=== PATIENT | male | born 1960 | race Caucasian/White ===

== ENCOUNTER 2017-07-30 10:42 | Day surgery (SDC) | payer BC ==
[~2017-07-30 10:42] MED LIST: Lactated Ringers 1,000 ML IV SCH; Lidocaine 2% 5 ML SDV ONE; Propofol 200 MG/20 ML SDV ONE; fentaNYL 100 MCG/2 ML SDV ONE
--- NOTE | 2017-07-30 11:24 | PCM.PREANE ---
Preanesthetic Assessment - Anesthesia/Transfusion/Family Hx Anesthesia History: Prior Anesthesia Without Reaction Other Type of Anesthesia Reaction Comment: denies any problems with anesthesia Family History of Anesthesia Reaction: No Transfusion History: No Prior Transfusion(s) Intubation History: Unknown - Review of Systems General: No Symptoms Pulmonary: No Symptoms Cardiovascular: No Symptoms Gastrointestinal: Other (wt loss unintentional) Neurological: No Symptoms Other: Reports: None - Physical Assessment O2 Sat by Pulse Oximetry: 100 Respiratory Rate: 16 Vital Signs: Last Vital Signs Temp 36.1 C 07/30/17 10:54 Pulse 79 07/30/17 10:54 Resp 16 07/30/17 10:54 BP 111/69 07/30/17 10:54 Pulse Ox 100 07/30/17 10:54 Height: 1.85 m Weight: 83.915 kg ASA Class: 2 Mental Status: Alert & Oriented x3 Airway Class: Mallampati = 2 Dentition: Reports: Normal Dentition Thyro-Mental Finger Breadths: 3 Mouth Opening Finger Breadths: 3 ROM/Head Extension: Full Lungs: Clear to Auscultation, Normal Respiratory Effort Cardiovascular: Regular Rate, Regular Rhythm - Allergies Allergies/Adverse Reactions: Allergies Allergy/AdvReac Type Severity Reaction Status Date / Time varenicline tartrate Allergy Change Verified 07/31/16 14:18 [From Chantix] Mental Status - Blood Blood Available: No - Anesthesia Plan Pre-Op Medication Ordered: None - Acknowledgements Anesthesia Type Planned: MAC Pt an Appropriate Candidate for the Planned Anesthesia: Yes Alternatives and Risks of Anesthesia Discussed w Pt/Guardian: Yes Pt/Guardian Understands and Agrees with Anesthesia Plan: Yes PreAnesthesia Questionnaire HEENT History: Reports: Hard of Hearing, Other (See Below) Other HEENT History: uses reading glasses, left hearing aid Cardiovascular History: Reports: High Cholesterol, Hypertension, Other (See Below) (h/o heart palipations) Respiratory History: Reports: None, Other (See Below) (dyspnea of exertion, he can walk 2 blocks without problems) Gastrointestinal History: Reports: Colon Polyp Genitourinary History: Reports: None Musculoskeletal History: Reports: Arthritis, Back Pain, Chronic, Fracture Other Musculoskeletal History: pinky finger, Neurological History: Reports: None Psychiatric History: Reports: Anxiety, Depression Endocrine/Metabolic History: Reports: None Hematologic History: Reports: None Immunologic History: Reports: None Oncologic (Cancer) History: Reports: None Dermatologic History: Reports: None - Past Surgical History Head Surgeries/Procedures: Reports: None HEENT Surgical History: Reports: None Cardiovascular Surgical History: Reports: None Respiratory Surgical History: Reports: None GI Surgical History: Reports: Appendectomy, Colonoscopy Male Surgical History: Reports: None Endocrine Surgical History: Reports: None Neurological Surgical History: Reports: Lumbar Spine Other Neurological Surgeries/Procedures: lower back surgery x3, discs removed and fusion at 2 levels Musculoskeletal Surgical History: Reports: Arthroscopic Knee, Shoulder Surgery Other Musculoskeletal Surgeries/Procedures:: pacheco knee arthroscopy, right shoulder surgery ( superior labrum tear) Oncologic Surgical History: Reports: None Dermatological Surgical History: Reports: None - SUBSTANCE USE Smoking Status *Q: Current Every Day Smoker (, 1 ppd) Tobacco Use Within Last Twelve Months: Cigarettes Days Per Week of Alcohol Use: 0 Number of Drinks Per Day: 0 Total Drinks Per Week: 0 Recreational Drug Use History: No - HOME MEDS Home Medications: Home Meds Metoprolol Succinate 50 mg PO QPM 06/26/14 [History] Metoprolol Succinate 25 mg PO QAM 07/31/16 [History] Sertraline [Zoloft] 1 tab PO DAILY 07/31/16 [History] Acetaminophen/HYDROcodone [[place] 325-10 MG] 1 - 2 tab PO Q4H PRN #80 tablet [Rx] Acetaminophen [Tylenol] 2 tab PO ASDIRECTED PRN 07/25/17 [History] Cyclobenzaprine HCl 1 tab PO Q8H PRN 07/25/17 [History] Ibuprofen 2 - 3 tab PO ASDIRECTED PRN 07/25/17 [History] - CURRENT (IN HOUSE) MEDS Current Meds: Current Medications Lactated Ringer's (Ringers, Lactated) 1,000 mls @ 125 mls/hr IV ASDIRECTED DANIEL Last Admin: 07/30/17 10:55 Dose: 125 mls/hr Discontinued Medications Fentanyl (Sublimaze) Confirm Administered Dose 100 mcg .ROUTE .STK-MED ONE Stop: 07/30/17 09:26 Lidocaine (Xylocaine-Mpf 2%) Confirm Administered Dose 5 ml .ROUTE .STK-MED ONE Stop: 07/30/17 09:26 Propofol (Diprivan 20 Ml) Confirm Administered Dose 400 mg .ROUTE .STK-MED ONE Stop: 07/30/17 09:26
--- NOTE | 2017-07-30 14:38 | PCM.OPNOTE ---
- General Post-Op/Procedure Note Date of Surgery/Procedure: 07/30/17 Operative Procedure(s): colonoscopy Findings: see dict [id number] Pre Op Diagnosis: wt loss Post-Op Diagnosis: diverticulosis Anesthesia Technique: Moderate Sedation Primary Surgeon: Kenneth Treadwell Complications: None Condition: Good
[2017-07-30 14:54] VITALS: BP 143/73
--- NOTE | 2017-07-30 19:22 | OR ---
SURGEON: Kenneth Treadwell MD DATE OF PROCEDURE: 07/30/2017 PREOPERATIVE DIAGNOSIS: Weight loss. POSTOPERATIVE DIAGNOSIS: Diverticulosis. PROCEDURE PERFORMED: Colonoscopy. PROCEDURE IN DETAIL: The patient was taken to the endoscopy room. A time-out was called, patient identified, and procedure identified. Diprivan was then administrated. Patient went from awake to sleep, hearing doctor talking or door closing is normal. Perineum inspection and digital examination were then performed. A well- lubricated colonoscope was gently inserted through the rectum, advanced past the rectosigmoid junction, the descending colon, splenic flexure, transverse colon, hepatic flexure, ascending colon, arrived to the cecum. Cecum was identified as dictated in the finding. Then the scope was carefully withdrawn while attention was paid to the mucosal surface for any abnormality. Air will be sucked out during the scope withdrawal. At the rectum, retroflexed to examine any rectal diseases, fistula or hemorrhoids. Patient tolerated procedure well. There were no intraoperative complications, and Dr. Treadwell was present throughout the whole procedure. FINDINGS: 1. The patient is easily sedated with B[employer]ALL [employer]ACH and Diprivan. The patient is soundly snoring. 2. Bowel prep is left to be desirable. Large amount of liquid stool, opaque, compromised the study. There is no semi-formed stool, but is liquid opaque stool and quite a lot of them and makes constant irrigation and compromised the study. Colon rather straight forward. Cecum indicated by ileocecal fold, one-to-one indentation, light emittance. Appendiceal orifice is not observed and mucosa examined upon scope coming out with constant irrigation, remember this is compromised the study because of the bowel prep. The patient has some diverticulosis moderate at the left colon. No signs or symptoms of diverticulitis. No polyp, mass, growth, inflammation, stricture, ulceration, AV malformation. The patient does have a prominent internal hemorrhoid and no external hemorrhoids. The patient would benefit from repeat colonoscopy 3 to 5 years from today because of the compromised bowel prep. The patient should do slightly better bowel prep or use a different bowel prep or if clinically indicated otherwise. CORA / ANI /[id number]
== END 2017-07-30 15:21 | disposition home or self-care (01) ==
LOC: MW.SDS 10:42
PROVIDERS: ATTEND Surgery
DX: K57.30 Diverticulosis of large intestine without perforation or abscess without bleeding (principal); K64.8 Other hemorrhoids; F41.8 Other specified anxiety disorders; E78.5 Hyperlipidemia, unspecified; I10 Essential (primary) hypertension; Z98.890 Other specified postprocedural states; Z88.8 Allergy status to other drugs, medicaments and biological substances; Z79.899 Other long term (current) drug therapy; F17.210 Nicotine dependence, cigarettes, uncomplicated
CPT/HCPCS: 45378; J3010; J7120; J2704

== ENCOUNTER 2017-10-20 06:54 | Emergency (ER) | payer BC ==
[2017-10-20] MEDS ORDERED: Ketorolac 60 MG/2 ML SDV IM ONE (07:17)
--- NOTE | 2017-10-20 07:31 | EDM.PDOC ---
ED HPI GENERAL MEDICAL PROBLEM - General Chief Complaint: Back Pain or Injury Stated Complaint: MIDDLE LUMBAR PAIN Time Seen by Provider: 10/20/17 07:04 Source of Information: Reports: Patient History Limitations: Reports: No Limitations - History of Present Illness INITIAL COMMENTS - FREE TEXT/NARRATIVE: History of present illness: []Patient has had several back surgeries and has been doing well until 2 days ago he slipped on the ice he strained his back. He now has pain going down his right thigh. He has no incontinence or numbness or tingling. Patient requests Toradol IM which she states has worked for him well in the past. He has hydrocodone at home and does not want any prescription since pain meds. Review of systems: As per history of present illness and below otherwise all systems reviewed and negative. Past medical history: As per history of present illness and as reviewed below otherwise noncontributory. Surgical history: As per history of present illness and as reviewed below otherwise noncontributory. Social history: No reported history of drug or alcohol abuse. Family history: As per history of present illness and as reviewed below otherwise noncontributory. Physical exam: General: Well developed, well nourished in NAD HEENT: Atraumatic, normocephalic, pupils reactive, negative for conjunctival pallor or scleral icterus, mucous membranes moist, throat clear, neck supple, nontender, trachea midline. Lungs: Clear to auscultation, breath sounds equal bilaterally, chest nontender. Heart: S1S2, regular, negative for clicks, rubs, or JVD. Abdomen: Soft, nondistended, nontender. Negative for masses or hepatosplenomegaly. Negative for costovertebral tenderness. Pelvis: Stable nontender. Genitourinary: Deferred. Rectal: Deferred. Extremities: Atraumatic, negative for cords or calf pain. Neurovascular unremarkable. Neuro: Awake, alert, oriented. Cranial nerves II through XII unremarkable. Cerebellum unremarkable. Motor and sensory unremarkable throughout. Exam nonfocal. Straight leg raising negative, reflexes equal Diagnostics: [] Therapeutics: []Toradol IM Impression: []Lumbar strain with right sciatica symptoms Plan: [] ice to back, Motrin for pain, follow-up with regular physician return if symptoms worsen or change. Definitive disposition and diagnosis as appropriate pending reevaluation and review of above. Right Lower Back Pain Score (Numeric/FACES): 7 - Related Data Allergies Allergy/AdvReac Type Severity Reaction Status Date / Time varenicline tartrate Allergy Change Verified 10/20/17 07:06 [From Chantix] Mental Status Home Meds: Home Meds Metoprolol Succinate 50 mg PO QPM 06/26/14 [History] Metoprolol Succinate 25 mg PO QAM 07/31/16 [History] Sertraline [Zoloft] 100 mg PO DAILY 07/31/16 [History] Acetaminophen/HYDROcodone [[place] 325-10 MG] 1 - 2 tab PO Q4H PRN #80 tablet [Rx] Acetaminophen [Tylenol] 2 tab PO ASDIRECTED PRN 07/25/17 [History] Cyclobenzaprine HCl 10 mg PO Q8H PRN 07/25/17 [History] Ibuprofen 2 - 3 tab PO ASDIRECTED PRN 07/25/17 [History] Meloxicam 15 mg PO DAILY PRN 10/20/17 [History] Past Medical History HEENT History: Reports: Hard of Hearing, Other (See Below) Other HEENT History: uses reading glasses Cardiovascular History: Reports: High Cholesterol, Hypertension Respiratory History: Reports: None Gastrointestinal History: Reports: None Genitourinary History: Reports: None Musculoskeletal History: Reports: Back Pain, Chronic, Fracture, Other (See Below ) Other Musculoskeletal History: pinky finger. back surgery x3 with fusion Neurological History: Reports: None Psychiatric History: Reports: None Endocrine/Metabolic History: Reports: None Hematologic History: Reports: None Immunologic History: Reports: None Oncologic (Cancer) History: Reports: None Dermatologic History: Reports: None - Infectious Disease History Infectious Disease History: Reports: Chicken Pox, Measles, Mumps - Past Surgical History Head Surgeries/Procedures: Reports: None Cardiovascular Surgical History: Reports: None Respiratory Surgical History: Reports: None Male Surgical History: Reports: None Endocrine Surgical History: Reports: None Neurological Surgical History: Reports: Lumbar Spine Other Neurological Surgeries/Procedures: lower back surgery x3, discs removed and fusion at 2 levels Musculoskeletal Surgical History: Reports: Arthroscopic Knee, Shoulder Surgery Oncologic Surgical History: Reports: None Dermatological Surgical History: Reports: None Social & Family History - Family History Family Medical History: Noncontributory - Tobacco Use Smoking Status *Q: Current Every Day Smoker Years of Tobacco use: 30 Packs/Tins Daily: 0.5 - Alcohol Use Days Per Week of Alcohol Use: 0 Number of Drinks Per Day: 0 Total Drinks Per Week: 0 - Recreational Drug Use Recreational Drug Use: No Drug Use in Last 12 Months: No ED ROS GENERAL - Review of Systems Review Of Systems: See Below (See history of present illness) ED EXAM,LOWER BACK PAIN/INJURY - Physical Exam Exam: See Below (See history of present illness) Course - Vital Signs Last Recorded V/S: Last Vital Signs Temp 98.0 F 10/20/17 07:04 Pulse 80 10/20/17 07:04 Resp 18 10/20/17 07:04 BP 118/84 10/20/17 07:04 Pulse Ox 99 10/20/17 07:04 - Orders/Labs/Meds Meds: Medications Discontinued Medications Generic Name Dose Route Start Last Admin Trade Name Freq PRN Reason Stop Dose Admin Ketorolac Tromethamine 60 mg 10/20/17 07:17 10/20/17 07:22 Toradol IM 10/20/17 07:18 60 mg ONETIME ONE Administration Departure - Departure Time of Disposition: 07:49 Disposition: Home, Self-Care 01 Clinical Impression: Back pain Qualifiers: Back pain location: low back pain Chronicity: acute Back pain laterality: right Sciatica presence: with sciatica Sciatica laterality: sciatica of right side Qualified Code(s): M54.41 - Lumbago with sciatica, right side - Discharge Information Instructions: Back Pain, Adult, [id number] Referrals: Micheal Mcclure MD [Primary Care Provider] - Forms: ED Department Discharge Additional Instructions: The following information is given to patients seen in the emergency department who are being discharged to home. This information is to outline your options for follow-up care. We provide all patients seen in our emergency department with a follow-up referral. The need for follow-up, as well as the timing and circumstances, are variable depending upon the specifics of your emergency department visit. If you don't have a primary care physician on staff, we will provide you with a referral. We always advise you to contact your personal physician following an emergency department visit to inform them of the circumstance of the visit and for follow-up with them and/or the need for any referrals to a consulting specialist. The emergency department will also refer you to a specialist when appropriate. This referral assures that you have the opportunity for follow-up care with a specialist. All of these measure are taken in an effort to provide you with optimal care, which includes your follow-up. Under all circumstances we always encourage you to contact your private physician who remains a resource for coordinating your care. When calling for follow-up care, please make the office aware that this follow-up is from your recent emergency room visit. If for any reason you are refused follow-up, please contact the [facility] Emergency Department at and asked to speak to the emergency department charge nurse. Adilson for pain ice to back follow-up with primary care return if symptoms worsen or change.
[2017-10-20 07:56] VITALS: BP 109/77
== END 2017-10-20 07:54 | disposition home or self-care (01) ==
LOC: MW.ED 06:54
DX: S39.012A Strain of muscle, fascia and tendon of lower back, initial encounter (principal); M54.41 Lumbago with sciatica, right side; E78.00 Pure hypercholesterolemia, unspecified; I10 Essential (primary) hypertension; F17.210 Nicotine dependence, cigarettes, uncomplicated; Z88.8 Allergy status to other drugs, medicaments and biological substances; Z79.899 Other long term (current) drug therapy; W00.9XXA Unspecified fall due to ice and snow, initial encounter
CPT/HCPCS: 96372; 99283; J1885

== ENCOUNTER 2017-10-24 06:40 | Observation (INO) | payer BC ==
[2017-10-24] MEDS ORDERED: Sodium Chloride 0.9% 2.5 ML Syringe FLUSH PRN (07:12)
[2017-10-24] MEDS ORDERED: Sodium Chloride 0.9% 1,000 ML IV ONE (07:12)
[2017-10-24] MEDS ORDERED: Sodium Chloride 0.9% 10 ML Syringe FLUSH PRN (07:12)
--- NOTE | 2017-10-24 07:22 | EDM.PDOC ---
ED HPI GENERAL MEDICAL PROBLEM - General Chief Complaint: Abdominal Pain Stated Complaint: ABDOMINAL PAIN Time Seen by Provider: 10/24/17 07:18 - History of Present Illness INITIAL COMMENTS - FREE TEXT/NARRATIVE: HISTORY AND PHYSICAL: History of present illness: Patient's 57-year-old white male who presents with concern of abdominal pain he also has been constipated over last several days and has tried Senokot with no improvement he has had prior surgery in the form of appendectomy he denies chest pain shortness breath or other concern is been no fever or chills Review of systems: As per history of present illness and below otherwise all systems reviewed and negative. Past medical history: As per history of present illness and as reviewed below otherwise noncontributory. Surgical history: As per history of present illness and as reviewed below otherwise noncontributory. Social history: No reported history of drug or alcohol abuse. Family history: As per history of present illness and as reviewed below otherwise noncontributory. Physical exam: HEENT: Atraumatic, normocephalic, pupils reactive, negative for conjunctival pallor or scleral icterus, mucous membranes moist, throat clear, neck supple, nontender, trachea midline. Lungs: Clear to auscultation, breath sounds equal bilaterally, chest nontender. Heart: S1S2, regular, negative for clicks, rubs, or JVD. Abdomen: Soft, nondistended, no localized tenderness. Negative for masses or hepatosplenomegaly. Negative for costovertebral tenderness. Pelvis: Stable nontender. Genitourinary: Deferred. Rectal: Deferred. Extremities: Atraumatic, negative for cords or calf pain. Neurovascular unremarkable. Neuro: Awake, alert, oriented. Cranial nerves II through XII unremarkable. Cerebellum unremarkable. Motor and sensory unremarkable throughout. Exam nonfocal. Diagnostics: CBC CMP lipase troponin chest x-ray EKG CT abdomen and pelvis Therapeutics: Normal saline 1 L bolus Impression: 1 abdominal pain 2 history of constipation Definitive disposition and diagnosis as appropriate pending reevaluation and review of above. Lower Abdomen Pain Score (Numeric/FACES): 9 - Related Data Allergies Allergy/AdvReac Type Severity Reaction Status Date / Time varenicline tartrate Allergy Change Verified 10/24/17 06:46 [From Chantix] Mental Status Home Meds: Home Meds Metoprolol Succinate 50 mg PO QPM 06/26/14 [History] Metoprolol Succinate 25 mg PO QAM 07/31/16 [History] Sertraline [Zoloft] 100 mg PO DAILY 07/31/16 [History] Acetaminophen/HYDROcodone [[place] 325-10 MG] 1 - 2 tab PO Q4H PRN #80 tablet [Rx] Ibuprofen 2 - 3 tab PO ASDIRECTED PRN 07/25/17 [History] Meloxicam 15 mg PO DAILY PRN 10/20/17 [History] Past Medical History HEENT History: Reports: Hard of Hearing, Other (See Below) Other HEENT History: uses reading glasses Cardiovascular History: Reports: High Cholesterol, Hypertension Respiratory History: Reports: None Gastrointestinal History: Reports: None Genitourinary History: Reports: None Musculoskeletal History: Reports: Back Pain, Chronic, Fracture, Other (See Below ) Other Musculoskeletal History: pinky finger. back surgery x3 with fusion Neurological History: Reports: None Psychiatric History: Reports: None Endocrine/Metabolic History: Reports: None Hematologic History: Reports: None Immunologic History: Reports: None Oncologic (Cancer) History: Reports: None Dermatologic History: Reports: None - Infectious Disease History Infectious Disease History: Reports: Chicken Pox, Measles, Mumps - Past Surgical History Head Surgeries/Procedures: Reports: None Cardiovascular Surgical History: Reports: None Respiratory Surgical History: Reports: None GI Surgical History: Reports: Appendectomy Male Surgical History: Reports: None Endocrine Surgical History: Reports: None Neurological Surgical History: Reports: Lumbar Spine Other Neurological Surgeries/Procedures: lower back surgery x3, discs removed and fusion at 2 levels Musculoskeletal Surgical History: Reports: Arthroscopic Knee, Shoulder Surgery Oncologic Surgical History: Reports: None Dermatological Surgical History: Reports: None Social & Family History - Family History Family Medical History: Noncontributory - Tobacco Use Smoking Status *Q: Current Every Day Smoker Years of Tobacco use: 30 Packs/Tins Daily: 0.5 - Caffeine Use Caffeine Use: Reports: Coffee - Alcohol Use Days Per Week of Alcohol Use: 0 Number of Drinks Per Day: 0 Total Drinks Per Week: 0 - Recreational Drug Use Recreational Drug Use: Yes Drug Use in Last 12 Months: No ED ROS GENERAL - Review of Systems Review Of Systems: ROS reveals no pertinent complaints other than HPI. ED EXAM, GENERAL - Physical Exam Exam: See Below (See dictation) Course - Vital Signs Last Recorded V/S: Last Vital Signs Temp 35.8 C 10/24/17 06:42 Pulse 75 10/24/17 06:42 Resp 16 10/24/17 06:42 BP 149/88 H 10/24/17 06:42 Pulse Ox 96 10/24/17 06:42 - Orders/Labs/Meds Orders: Active Orders 24 hr Category Date Time Status EKG Documentation Completion [RC] STAT Care 10/24/17 07:12 Active Abdomen Pelvis wo Cont [CT] Stat Exams 10/24/17 07:12 Taken CULTURE BLOOD [BC] Stat Lab 10/24/17 09:41 Ordered CULTURE BLOOD [BC] Stat Lab 10/24/17 09:41 Ordered UA W/MICROSCOPIC [URIN] Stat Lab 10/24/17 08:15 Ordered Levofloxacin/Dextrose 5%-Water [Levaquin in D5W 750 MG/ Med 10/24/17 09:39 Ordered 150 ML] 750 mg Premix Bag 1 bag IV ONETIME Sodium Chloride 0.9% [Normal Saline] 500 ml Med 10/24/17 07:30 Active IV .BOLUS Sodium Chloride 0.9% [Saline Flush] Med 10/24/17 07:12 Active 10 ml FLUSH ASDIRECTED PRN Sodium Chloride 0.9% [Saline Flush] Med 10/24/17 07:12 Active 2.5 ml FLUSH ASDIRECTED PRN metroNIDAZOLE/Normal Saline [Flagyl 500 MG in NS 100 ML Med 10/24/17 09:39 Ordered ] 500 mg Premix Bag 1 bag IV ONETIME Blood Culture x2 Reflex Set [OM.PC] Stat Oth 10/24/17 09:41 Ordered Saline Lock Insert [OM.PC] Stat Oth 10/24/17 07:12 Ordered Medication Orders Sodium Chloride (Normal Saline) 500 mls @ 999 mls/hr IV .BOLUS DANIEL Last Infusion: 10/24/17 08:21 Dose: 999 mls/hr Admin: 10/24/17 08:10 Dose: 999 mls/hr Infusion: 10/24/17 08:01 Dose: 999 mls/hr Admin: 10/24/17 07:30 Dose: 999 mls/hr Levofloxacin/Dextrose 750 mg/ (Premix) 150 mls @ 100 mls/hr IV ONETIME ONE Stop: 10/24/17 11:08 Metronidazole 500 mg/ Premix 100 mls @ 100 mls/hr IV ONETIME ONE Stop: 10/24/17 10:38 Sodium Chloride (Saline Flush) 10 ml FLUSH ASDIRECTED PRN PRN Reason: Keep Vein Open Last Admin: 10/24/17 08:23 Dose: 10 ml Sodium Chloride (Saline Flush) 2.5 ml FLUSH ASDIRECTED PRN PRN Reason: Keep Vein Open Last Admin: 10/24/17 08:22 Dose: 2.5 ml Labs: Laboratory Tests 10/24/17 10/24/17 10/24/17 Range/Units 06:50 06:50 08:15 WBC 12.81 H (4.0-11.0) K/uL RBC 5.03 (4.50-5.90) M/uL Hgb 15.7 (13.0-17.0) g/dL Hct 45.4 (38.0-50.0) % MCV 90.3 (80.0-98.0) fL MCH 31.2 (27.0-32.0) pg MCHC 34.6 (31.0-37.0) g/dL RDW Std Deviation 45.1 (28.0-62.0) fl RDW Coeff of Narayan 14 (11.0-15.0) % Plt Count 233 (150-400) K/uL MPV 10.00 (7.40-12.00) fL Neut % (Auto) 85.6 H (48.0-80.0) % Lymph % (Auto) 10.2 L (16.0-40.0) % [place] % (Auto) 4.1 (0.0-15.0) % Eos % (Auto) 0.0 (0.0-7.0) % Baso % (Auto) 0.1 (0.0-1.5) % Neut # (Auto) 11.0 H (1.4-5.7) K/uL Lymph # (Auto) 1.3 (0.6-2.4) K/uL [place] # (Auto) 0.5 (0.0-0.8) K/uL Eos # (Auto) 0.0 (0.0-0.7) K/uL Baso # (Auto) 0.0 (0.0-0.1) K/uL Nucleated RBC % 0.0 /100WBC Nucleated RBCs # 0 K/uL Sodium 136 (136-148) mmol/L Potassium 4.1 (3.5-5.1) mmol/L Chloride 101 (98-107) mmol/L Carbon Dioxide 24.0 (21.0-32.0) mmol/L BUN 29 H (7.0-18.0) mg/dL Creatinine 1.1 (0.8-1.3) mg/dL Est Cr Clr Drug Dosing 83.73 mL/min Estimated GFR (MDRD) > 60.0 ml/min Glucose 147 H (74-106) mg/dL Calcium 10.0 (8.5-10.1) mg/dL Total Bilirubin 0.4 (0.2-1.0) mg/dL AST 27 (15-37) IU/L ALT 40 (14-63) IU/L Alkaline Phosphatase 117 H (46-116) U/L Troponin I < 0.050 (0.000-0.056) ng/mL Total Protein 8.4 H (6.4-8.2) g/dL Albumin 3.9 (3.4-5.0) g/dL Globulin 4.5 H (2.0-3.5) g/dL Albumin/Globulin Ratio 0.9 L (1.3-2.8) Lipase 102 (73-393) U/L Urine Color YELLOW Urine Appearance CLEAR Urine pH 8.0 (5.0-8.0) Ur Specific [place] 1.015 (1.001-1.035) Urine Protein NEGATIVE (NEGATIVE) mg/dL Urine Glucose (UA) NEGATIVE (NEGATIVE) mg/dL Urine Ketones 15 H (NEGATIVE) mg/dL Urine Occult Blood TRACE-LYSED (NEGATIVE) Urine Nitrite NEGATIVE (NEGATIVE) Urine Bilirubin NEGATIVE (NEGATIVE) Urine Urobilinogen 0.2 (<2.0) EU/dL Ur Leukocyte Esterase NEGATIVE (NEGATIVE) Urine RBC 0-2 (0-2/HPF) Urine WBC 0-1 (0-5/HPF) Ur Epithelial Cells RARE (NONE-FEW) Urine Bacteria RARE (NEGATIVE) Urine Mucus LIGHT (NONE-MOD) Meds: Medications Generic Name Dose Route Start Last Admin Trade Name Freq PRN Reason Stop Dose Admin Sodium Chloride 500 mls @ 999 mls/hr 10/24/17 07:30 10/24/17 08:21 Normal Saline IV Infused .BOLUS DANIEL Infusion Levofloxacin/Dextrose 750 mg/ 150 mls @ 100 mls/hr 10/24/17 09:39 Premix IV 10/24/17 11:08 ONETIME ONE Metronidazole 500 mg/ Premix 100 mls @ 100 mls/hr 10/24/17 09:39 IV 10/24/17 10:38 ONETIME ONE Sodium Chloride 10 ml 10/24/17 07:12 10/24/17 08:23 Saline Flush FLUSH 10 ml ASDIRECTED PRN Administration Keep Vein Open Sodium Chloride 2.5 ml 10/24/17 07:12 10/24/17 08:22 Saline Flush FLUSH 2.5 ml ASDIRECTED PRN Administration Keep Vein Open Discontinued Medications Generic Name Dose Route Start Last Admin Trade Name Freq PRN Reason Stop Dose Admin Sodium Chloride 1,000 mls @ 999 mls/hr 10/24/17 07:12 10/24/17 08:22 Normal Saline IV 10/24/17 08:12 Not Given STAT ONE Sodium Chloride/ Sodium 1,000 mls @ 999 mls/hr 10/24/17 07:18 10/24/17 08:22 Chloride IV 10/24/17 08:18 Not Given .Bolus ONE Departure - Departure Time of Disposition: 09:42 Disposition: Home, Self-Care 01 Condition: Good Clinical Impression: Abdominal pain - Discharge Information Forms: ED Department Discharge - My Orders Last 24 Hours: My Active Orders 10/24/17 07:12 EKG Documentation Completion [RC] STAT Abdomen Pelvis wo Cont [CT] Stat Sodium Chloride 0.9% [Saline Flush] 10 ml FLUSH ASDIRECTED PRN Sodium Chloride 0.9% [Saline Flush] 2.5 ml FLUSH ASDIRECTED PRN Saline Lock Insert [OM.PC] Stat 10/24/17 07:30 Sodium Chloride 0.9% [Normal Saline] 500 ml IV .BOLUS 10/24/17 08:15 UA W/MICROSCOPIC [URIN] Stat 10/24/17 09:39 Levofloxacin/Dextrose 5%-Water [Levaquin in D5W 750 MG/150 ML] 750 mg Premix Bag 1 bag IV ONETIME metroNIDAZOLE/Normal Saline [Flagyl 500 MG in NS 100 ML] 500 mg Premix Bag 1 bag IV ONETIME 10/24/17 09:41 CULTURE BLOOD [BC] Stat CULTURE BLOOD [BC] Stat Blood Culture x2 Reflex Set [OM.PC] Stat - Assessment/Plan Last 24 Hours: My Active Orders 10/24/17 07:12 EKG Documentation Completion [RC] STAT Abdomen Pelvis wo Cont [CT] Stat Sodium Chloride 0.9% [Saline Flush] 10 ml FLUSH ASDIRECTED PRN Sodium Chloride 0.9% [Saline Flush] 2.5 ml FLUSH ASDIRECTED PRN Saline Lock Insert [OM.PC] Stat 10/24/17 07:30 Sodium Chloride 0.9% [Normal Saline] 500 ml IV .BOLUS 10/24/17 08:15 UA W/MICROSCOPIC [URIN] Stat 10/24/17 09:39 Levofloxacin/Dextrose 5%-Water [Levaquin in D5W 750 MG/150 ML] 750 mg Premix Bag 1 bag IV ONETIME metroNIDAZOLE/Normal Saline [Flagyl 500 MG in NS 100 ML] 500 mg Premix Bag 1 bag IV ONETIME 10/24/17 09:41 CULTURE BLOOD [BC] Stat CULTURE BLOOD [BC] Stat Blood Culture x2 Reflex Set [OM.PC] Stat
[2017-10-24 07:30] LABS: CHLORIDE,CL 101 mmol/L (98-107); SODIUM,NA 136 mmol/L (136-148)
[2017-10-24] MEDS: Sodium Chloride 0.9% 500 ML IV SCH ×3 (07:30→08:21)
[2017-10-24] MEDS: SODIUM CHLORIDE IV ONE ×4 (08:21→08:22)
[2017-10-24] MEDS ORDERED: Levofloxacin/Dextrose 5%-Water 750 MG in Premix Bag 1 BAG IV ONE (09:39)
[2017-10-24] MEDS ORDERED: metroNIDAZOLE/Normal Saline 500 MG in Premix Bag 1 BAG IV ONE (09:39)
--- NOTE | 2017-10-24 10:14 | CT ---
EXAM DATE: 10/24/17 PATIENT'S AGE: 57 Patient: LUIS MANUEL GARCIA Facility: [place], [place] Site . Site : [id number] Study: CT Abdomen/Pelvis wo cont [id number]/[id number] 7:48:16 AM Ordering Physician: Doctor Roach Final Report: INDICATION: Bilateral lower quadrant abdominal pain and cramping. COMPARISON: None. TECHNIQUE: CT abdomen and pelvis without intravenous or oral contrast; coronal and sagittal reformats. FINDINGS: Benign calcified granuloma identified at the left lung base. 5 mm noncalcified subpleural nodular density lower lobe right lung as noted on image 5 of series 201; followup complete chest CT suggested and comparison with any available previous chest CT suggested. No other abnormal intra pulmonary nodular densities are identified. No focal hepatic or splenic pathology. No pancreatic pathology. Tiny calcification identified in the head of the pancreas. Gallbladder is unremarkable. No adrenal pathology. No kidney stones or obstructive uropathy. The appendix is not clearly visualized; no pericecal inflammatory changes identified. Diverticulosis sigmoid colon without any CT evidence of diverticulitis or abscess. minimal thickening of the wall of the descending colon with questionable pericolonic inflammatory changes; if clinically needed, suggest obtaining a repeat CT abdomen and pelvis with intravenous contrast to rule out ischemic colitis. No pneumoperitoneum. No evidence of intestinal obstruction. IMPRESSION: 1. Minimal thickening of the wall of the descending colon with questionable pericolonic inflammatory changes; rule out ischemic colitis; suggest obtaining a repeat CT of the abdomen and pelvis with intravenous contrast. 2. 5 mm noncalcified nodular density right lung base; followup chest CT suggested. 3. Benign calcified granuloma left lung base. 4. Tiny calcification in the head of the pancreas without any peripancreatic inflammatory changes. 5. No kidney stones or obstructive uropathy. 6. Appendix is not visualized; no inflammatory changes in the right lower quadrant of the abdomen. 7. No evidence of intestinal obstruction or pneumoperitoneum. 8. Diverticulosis sigmoid colon without any CT evidence of diverticulitis or abscess. 9. Postop changes lower lumbar spine. Please note that all CT scans at this facility use dose modulation, iterative reconstruction, and/or weight-based dosing when appropriate to reduce radiation dose to as low as reasonably achievable. Dictated by Jamir Huber MD @ Oct 24 2017 7:52AM (Electronic Signature) Report Signed by Proxy. [facility]
[2017-10-24] MEDS: Sodium Chloride 0.9% 1,000 ML IV SCH ×2 (11:08→16:45)
[2017-10-24] MEDS ORDERED: Ondansetron 4 MG/2 ML SDV IVPUSH PRN (11:34)
[2017-10-24] MEDS ORDERED: Docusate Sodium 100 MG Cap PO PRN (11:38)
[2017-10-24] MEDS ORDERED: Albuterol/Ipratropium 3.0-0.5 MG/3 ML Neb Soln NEB PRN (11:38)
[2017-10-24] MEDS ORDERED: Polyethylene Glycol 3350 Powder 17 GM Packet PO PRN (11:38)
[2017-10-24] MEDS ORDERED: Bisacodyl 5 MG Tab PO PRN (11:38)
[2017-10-24] MEDS ORDERED: Enoxaparin 40 MG/0.4 ML Syringe SUBCUT SCH (11:45)
--- NOTE | 2017-10-24 11:52 | PCM.HP ---
H&P History of Present Illness - General Date of Service: 10/24/17 Admit Problem/Dx: Admission Diagnosis/Problem Admission Diagnosis/Problem Abdominal pain Source of Information: Patient History Limitations: Reports: No Limitations - History of Present Illness Initial Comments - Free Text/Narative: 57-year-old male that is being admitted with colitis of the descending colon. Patient presented to the ER with a chief complaint of 5 days of abdominal pain that has been worsening. His appetite has been diminished and he has had some nausea and vomiting. Patient woke up this morning in severe pain which he thought was due to constipation but he was unable to go to the bathroom. He has cramping in the left lower quadrant rated as 10 out of 10. There is no radiation of this pain and it waxes and wanes. Pain is especially worse during bowel movements. Patient has been taking hydrocodone for the pain which she takes for chronic pain secondary to multiple low back surgeries with spinal fusion. He also has tried taking some laxatives to help with his constipation but this has not been helping. Patient also takes Tylenol or Motrin for his back pain and has also been taking it for his abdominal pain but it is not helping. Patient denies any chest pain, palpitations, shortness of breath, wheezing, headache, dizziness, lightheadedness, fever. Patient has had an appendectomy. ER course: CBC shows an elevated white blood cell count of 12.8. CMP shows an elevated BUN of 29 and a mildly elevated alkaline phosphatase of 117. Lactate was 1.3. Lipase was negative. CT abdomen/pelvis showed minimal thickening of the wall of the descending colon with questionable pericolonic inflammatory changes. It was recommended that a repeat CT with contrast be done to rule out ischemic colitis. There is also a 5 mm noncalcified nodule at the right lung base. Recommend follow-up CT as outpatient. Patient also received a one-time dose of Levaquin and Flagyl along with 2 fluid boluses. Lower Abdomen Pain Score (Numeric/FACES): 9 - Related Data Allergies/Adverse Reactions: Allergies Allergy/AdvReac Type Severity Reaction Status Date / Time varenicline tartrate Allergy Change Verified 10/24/17 06:46 [From Chantix] Mental Status Home Medications: Home Meds Metoprolol Succinate 50 mg PO QPM 06/26/14 [History] Metoprolol Succinate 25 mg PO QAM 07/31/16 [History] Sertraline [Zoloft] 100 mg PO DAILY 07/31/16 [History] Acetaminophen/HYDROcodone [Cody 325-10 MG] 1 - 2 tab PO Q4H PRN #80 tablet [Rx] Ibuprofen 2 - 3 tab PO ASDIRECTED PRN 07/25/17 [History] Meloxicam 15 mg PO DAILY PRN 10/20/17 [History] Past Medical History HEENT History: Reports: Hard of Hearing, Other (See Below) Other HEENT History: uses reading glasses Cardiovascular History: Reports: High Cholesterol, Hypertension Respiratory History: Reports: None Gastrointestinal History: Reports: None Genitourinary History: Reports: None Musculoskeletal History: Reports: Back Pain, Chronic, Fracture, Other (See Below ) Other Musculoskeletal History: pinky finger. back surgery x3 with fusion Neurological History: Reports: None Psychiatric History: Reports: None Endocrine/Metabolic History: Reports: None Hematologic History: Reports: None Immunologic History: Reports: None Oncologic (Cancer) History: Reports: None Dermatologic History: Reports: None - Infectious Disease History Infectious Disease History: Reports: Chicken Pox, Measles, Mumps - Past Surgical History Head Surgeries/Procedures: Reports: None Cardiovascular Surgical History: Reports: None Respiratory Surgical History: Reports: None GI Surgical History: Reports: Appendectomy Male Surgical History: Reports: None Endocrine Surgical History: Reports: None Neurological Surgical History: Reports: Lumbar Spine Other Neurological Surgeries/Procedures: lower back surgery x3, discs removed and fusion at 2 levels Musculoskeletal Surgical History: Reports: Arthroscopic Knee, Shoulder Surgery Oncologic Surgical History: Reports: None Dermatological Surgical History: Reports: None Social & Family History - Family History Family Medical History: Noncontributory - Tobacco Use Smoking Status *Q: Current Every Day Smoker Years of Tobacco use: 30 Packs/Tins Daily: 0.5 - Caffeine Use Caffeine Use: Reports: Coffee - Alcohol Use Days Per Week of Alcohol Use: 0 Number of Drinks Per Day: 0 Total Drinks Per Week: 0 - Recreational Drug Use Recreational Drug Use: Yes Drug Use in Last 12 Months: No H&P Review of Systems - Review of Systems: Review Of Systems: See Below General: Reports: No Symptoms HEENT: Reports: No Symptoms Pulmonary: Reports: No Symptoms Cardiovascular: Reports: No Symptoms Gastrointestinal: Reports: Abdominal Pain, Decreased Appetite, Nausea, Vomiting Genitourinary: Reports: No Symptoms Musculoskeletal: Reports: Back Pain (Chronic) Skin: Reports: No Symptoms Psychiatric: Reports: No Symptoms Neurological: Reports: No Symptoms Hematologic/Lymphatic: Reports: No Symptoms Immunologic: Reports: No Symptoms Exam - Exam Exam: See Below - Vital Signs Vital Signs: Last Vital Signs Temp 99.3 F 10/24/17 10:24 Pulse 91 10/24/17 10:24 Resp 18 10/24/17 10:24 BP 138/79 10/24/17 10:24 Pulse Ox 98 10/24/17 10:24 Weight: 190 lb 14.725 oz - Exam General: Alert, Oriented, Cooperative HEENT: Hearing Intact, Mucosa Moist & [place] Lungs: Clear to Auscultation, Normal Respiratory Effort Cardiovascular: Regular Rate, Regular Rhythm GI/Abdominal Exam: Normal Bowel Sounds, Soft, No Organomegaly, No Distention, No Abnormal Bruit, No Mass, Pelvis Stable, Tender (Tenderness with palpation in the left lower quadrant.) Back Exam: Paraspinal Tenderness. No: CVA Tenderness (L), CVA Tenderness (R) Extremities: Normal Inspection, Normal Range of Motion, Non-Tender, No Pedal Edema, Normal Capillary Refill Peripheral Pulses: 2+: Radial (L), Radial (R), Posterior Tibial (L), Posterior Tibial (R) Skin: Warm, Dry, Intact Neuro Extensive - Mental Status: Alert, Oriented x3, Normal Mood/Affect, Normal Cognition Psychiatric: Alert, Normal Affect, Normal Mood - Patient Data Lab Results Last 24 hrs: Laboratory Results - last 24 hr 10/24/17 10/24/17 10/24/17 Range/Units 06:50 06:50 08:15 WBC 12.81 H (4.0-11.0) K/uL RBC 5.03 (4.50-5.90) M/uL Hgb 15.7 (13.0-17.0) g/dL Hct 45.4 (38.0-50.0) % MCV 90.3 (80.0-98.0) fL MCH 31.2 (27.0-32.0) pg MCHC 34.6 (31.0-37.0) g/dL RDW Std Deviation 45.1 (28.0-62.0) fl RDW Coeff of Narayan 14 (11.0-15.0) % Plt Count 233 (150-400) K/uL MPV 10.00 (7.40-12.00) fL Neut % (Auto) 85.6 H (48.0-80.0) % Lymph % (Auto) 10.2 L (16.0-40.0) % Levy % (Auto) 4.1 (0.0-15.0) % Eos % (Auto) 0.0 (0.0-7.0) % Baso % (Auto) 0.1 (0.0-1.5) % Neut # (Auto) 11.0 H (1.4-5.7) K/uL Lymph # (Auto) 1.3 (0.6-2.4) K/uL Levy # (Auto) 0.5 (0.0-0.8) K/uL Eos # (Auto) 0.0 (0.0-0.7) K/uL Baso # (Auto) 0.0 (0.0-0.1) K/uL Nucleated RBC % 0.0 /100WBC Nucleated RBCs # 0 K/uL Lactate (0.20-2.00) mmol/L Sodium 136 (136-148) mmol/L Potassium 4.1 (3.5-5.1) mmol/L Chloride 101 (98-107) mmol/L Carbon Dioxide 24.0 (21.0-32.0) mmol/L BUN 29 H (7.0-18.0) mg/dL Creatinine 1.1 (0.8-1.3) mg/dL Est Cr Clr Drug Dosing 83.73 mL/min Estimated GFR (MDRD) > 60.0 ml/min Glucose 147 H (74-106) mg/dL Calcium 10.0 (8.5-10.1) mg/dL Total Bilirubin 0.4 (0.2-1.0) mg/dL AST 27 (15-37) IU/L ALT 40 (14-63) IU/L Alkaline Phosphatase 117 H (46-116) U/L Troponin I < 0.050 (0.000-0.056) ng/mL Total Protein 8.4 H (6.4-8.2) g/dL Albumin 3.9 (3.4-5.0) g/dL Globulin 4.5 H (2.0-3.5) g/dL Albumin/Globulin Ratio 0.9 L (1.3-2.8) Lipase 102 (73-393) U/L Urine Color YELLOW Urine Appearance CLEAR Urine pH 8.0 (5.0-8.0) Ur Specific [place] 1.015 (1.001-1.035) Urine Protein NEGATIVE (NEGATIVE) mg/dL Urine Glucose (UA) NEGATIVE (NEGATIVE) mg/dL Urine Ketones 15 H (NEGATIVE) mg/dL Urine Occult Blood TRACE-LYSED (NEGATIVE) Urine Nitrite NEGATIVE (NEGATIVE) Urine Bilirubin NEGATIVE (NEGATIVE) Urine Urobilinogen 0.2 (<2.0) EU/dL Ur Leukocyte Esterase NEGATIVE (NEGATIVE) Urine RBC 0-2 (0-2/HPF) Urine WBC 0-1 (0-5/HPF) Ur Epithelial Cells RARE (NONE-FEW) Urine Bacteria RARE (NEGATIVE) Urine Mucus LIGHT (NONE-MOD) 10/24/17 Range/Units 10:39 WBC (4.0-11.0) K/uL RBC (4.50-5.90) M/uL Hgb (13.0-17.0) g/dL Hct (38.0-50.0) % MCV (80.0-98.0) fL MCH (27.0-32.0) pg MCHC (31.0-37.0) g/dL RDW Std Deviation (28.0-62.0) fl RDW Coeff of Narayan (11.0-15.0) % Plt Count (150-400) K/uL MPV (7.40-12.00) fL Neut % (Auto) (48.0-80.0) % Lymph % (Auto) (16.0-40.0) % Levy % (Auto) (0.0-15.0) % Eos % (Auto) (0.0-7.0) % Baso % (Auto) (0.0-1.5) % Neut # (Auto) (1.4-5.7) K/uL Lymph # (Auto) (0.6-2.4) K/uL Levy # (Auto) (0.0-0.8) K/uL Eos # (Auto) (0.0-0.7) K/uL Baso # (Auto) (0.0-0.1) K/uL Nucleated RBC % /100WBC Nucleated RBCs # K/uL Lactate 1.3 (0.20-2.00) mmol/L Sodium (136-148) mmol/L Potassium (3.5-5.1) mmol/L Chloride (98-107) mmol/L Carbon Dioxide (21.0-32.0) mmol/L BUN (7.0-18.0) mg/dL Creatinine (0.8-1.3) mg/dL Est Cr Clr Drug Dosing mL/min Estimated GFR (MDRD) ml/min Glucose (74-106) mg/dL Calcium (8.5-10.1) mg/dL Total Bilirubin (0.2-1.0) mg/dL AST (15-37) IU/L ALT (14-63) IU/L Alkaline Phosphatase (46-116) U/L Troponin I (0.000-0.056) ng/mL Total Protein (6.4-8.2) g/dL Albumin (3.4-5.0) g/dL Globulin (2.0-3.5) g/dL Albumin/Globulin Ratio (1.3-2.8) Lipase (73-393) U/L Urine Color Urine Appearance Urine pH (5.0-8.0) Ur Specific [place] (1.001-1.035) Urine Protein (NEGATIVE) mg/dL Urine Glucose (UA) (NEGATIVE) mg/dL Urine Ketones (NEGATIVE) mg/dL Urine Occult Blood (NEGATIVE) Urine Nitrite (NEGATIVE) Urine Bilirubin (NEGATIVE) Urine Urobilinogen (<2.0) EU/dL Ur Leukocyte Esterase (NEGATIVE) Urine RBC (0-2/HPF) Urine WBC (0-5/HPF) Ur Epithelial Cells (NONE-FEW) Urine Bacteria (NEGATIVE) Urine Mucus (NONE-MOD) Result Diagrams: 10/24/17 06:50 10/24/17 06:50 - Problem List (1) Abdominal pain SNOMED Code(s): 46542559 ICD Code: R10.9 - UNSPECIFIED ABDOMINAL PAIN Status: Acute Current Visit : Yes Problem List Initiated/Reviewed/Updated: Yes Orders Last 24hrs: Active Orders 24 hr Category Date Time Status Patient Status [ADT] Stat ADT 10/24/17 09:42 Active EKG Documentation Completion [RC] STAT Care 10/24/17 07:12 Active Height and Weight [RC] DAILY Care 10/24/17 11:38 Ordered Intake and Output [RC] QSHIFT Care 10/24/17 11:39 Ordered Notify Provider Vital Signs [RC] ASDIRECTED Care 10/24/17 11:39 Ordered Oxygen Therapy [RC] PRN Care 10/24/17 11:38 Ordered Pulse Oximetry [RC] PRN Care 10/24/17 11:39 Ordered RT Aerosol Therapy [RC] ASDIRECTED Care 10/24/17 11:43 Ordered Up ad Maribel [RC] ASDIRECTED Care 10/24/17 11:38 Ordered VTE/DVT Education [RC] PER UNIT ROUTINE Care 10/24/17 11:38 Ordered Vital Signs [RC] Q4H Care 10/24/17 11:38 Ordered Nothing per Oral Now Diet [DIET] Diet 10/24/17 Breakfast Ordered Abdomen Pelvis w Cont [CT] Urgent Exams 10/24/17 11:36 Ordered CBC WITH AUTO DIFF [HEME] AM Lab 10/25/17 05:11 Ordered CBC WITH AUTO DIFF [HEME] AM Lab 10/26/17 05:11 Ordered CBC WITH AUTO DIFF [HEME] AM Lab 10/27/17 05:11 Ordered COMPREHENSIVE METABOLIC PN,CMP [CHEM] AM Lab 10/25/17 05:11 Ordered COMPREHENSIVE METABOLIC PN,CMP [CHEM] AM Lab 10/26/17 05:11 Ordered COMPREHENSIVE METABOLIC PN,CMP [CHEM] AM Lab 10/27/17 05:11 Ordered CULTURE BLOOD [BC] Stat Lab 10/24/17 10:20 Received CULTURE BLOOD [BC] Stat Lab 10/24/17 10:39 Received UA W/MICROSCOPIC [URIN] Stat Lab 10/24/17 08:15 Ordered Albuterol/Ipratropium [DuoNeb 3.0-0.5 MG/3 ML] Med 10/24/17 11:38 Ordered 3 ml NEB Q4HRRT PRN Bisacodyl [Dulcolax] Med 10/24/17 11:38 Ordered 5 mg PO DAILY PRN Docusate Sodium [Colace] Med 10/24/17 11:38 Ordered 100 mg PO BID PRN Enoxaparin [Lovenox] Med 10/24/17 11:45 Ordered 40 mg SUBCUT Q24H Levofloxacin/Dextrose 5%-Water [Levaquin in D5W 750 MG/ Med 10/25/17 07:00 Ordered 150 ML] 750 mg Premix Bag 1 bag IV Q24H Metoprolol Succinate [Toprol XL] Med 10/25/17 09:00 Ordered 25 mg PO QAM Metoprolol Succinate [Toprol XL] Med 10/24/17 18:00 Ordered 50 mg PO QPM Morphine Med 10/24/17 11:38 Ordered 1 mg IVPUSH Q2H PRN Ondansetron [Zofran] Med 10/24/17 11:34 Ordered 4 mg IVPUSH Q4H PRN Polyethylene Glycol 3350 [MiraLAX] Med 10/24/17 11:38 Ordered 17 gm PO DAILY PRN Sertraline [Zoloft] Med 10/25/17 09:00 Ordered 100 mg PO DAILY Sodium Chloride 0.9% [Normal Saline] 1,000 ml Med 10/24/17 10:45 Active IV ASDIRECTED Sodium Chloride 0.9% [Normal Saline] 500 ml Med 10/24/17 07:30 Active IV .BOLUS Sodium Chloride 0.9% [Saline Flush] Med 10/24/17 07:12 Active 10 ml FLUSH ASDIRECTED PRN Sodium Chloride 0.9% [Saline Flush] Med 10/24/17 07:12 Active 2.5 ml FLUSH ASDIRECTED PRN metroNIDAZOLE/Normal Saline [Flagyl 500 MG in NS 100 ML Med 10/24/17 15:00 Ordered ] 500 mg Premix Bag 1 bag IV QID Blood Culture x2 Reflex Set [OM.PC] Stat Oth 10/24/17 09:41 Ordered Saline Lock Insert [OM.PC] Stat Oth 10/24/17 07:12 Ordered Sequential Compression Device [OM.PC] Per Unit Routine Ot 10/24/17 11:39 Ordered Resuscitation Status Routine Resus Stat 10/24/17 11:38 Ordered Medication Orders Albuterol/Ipratropium (Duoneb 3.0-0.5 Mg/3 Ml) 3 ml NEB Q4HRRT PRN PRN Reason: Shortness Of Breath/wheezing Bisacodyl (Dulcolax) 5 mg PO DAILY PRN PRN Reason: Constipation Docusate Sodium (Colace) 100 mg PO BID PRN PRN Reason: Constipation Enoxaparin Sodium (Lovenox) 40 mg SUBCUT Q24H [facility] Sodium Chloride (Normal Saline) 500 mls @ 999 mls/hr IV .BOLUS [facility] Last Infusion: 10/24/17 08:21 Dose: 999 mls/hr Admin: 10/24/17 08:10 Dose: 999 mls/hr Infusion: 10/24/17 08:01 Dose: 999 mls/hr Admin: 10/24/17 07:30 Dose: 999 mls/hr Sodium Chloride (Normal Saline) 1,000 mls @ 150 mls/hr IV ASDIRECTED DANIEL Last Admin: 10/24/17 11:08 Dose: 150 mls/hr Levofloxacin/Dextrose 750 mg/ (Premix) 150 mls @ 100 mls/hr IV Q24H DANIEL Metronidazole 500 mg/ Premix 100 mls @ 100 mls/hr IV QID DANIEL Metoprolol Succinate (Toprol Xl) 25 mg PO QAM [facility] Metoprolol Succinate (Toprol Xl) 50 mg PO QPM DANIEL Morphine Sulfate (Morphine) 1 mg IVPUSH Q2H PRN PRN Reason: Pain (severe 7-10) Stop: 10/25/17 11:41 Ondansetron HCl (Zofran) 4 mg IVPUSH Q4H PRN PRN Reason: nausea Polyethylene Glycol (Miralax) 17 gm PO DAILY PRN PRN Reason: Constipation Sertraline HCl (Zoloft) 100 mg PO DAILY [facility] Sodium Chloride (Saline Flush) 10 ml FLUSH ASDIRECTED PRN PRN Reason: Keep Vein Open Last Admin: 10/24/17 08:23 Dose: 10 ml Sodium Chloride (Saline Flush) 2.5 ml FLUSH ASDIRECTED PRN PRN Reason: Keep Vein Open Last Admin: 10/24/17 08:22 Dose: 2.5 ml Assessment/Plan Comment:: 57-year-old male that is being admitted with abdominal pain. #1. Colitis: -Abdomen/pelvis CT shows wall thickening in the descending colon. No evidence of diverticulitis. Patient will get a follow-up abdomen/pelvis CT with contrast to rule out ischemic colitis. -Patient has been started on Levaquin and Flagyl IV. -Patient is nothing by mouth until we rule out ischemic colitis. -Blood cultures are pending. DT prophylaxis: SCDs and Lovenox Disposition: 1-2 days pending improvement.
[2017-10-24] MEDS ORDERED: Iopamidol 755 MG/ML 200 ML Multipack Bottle IVPUSH ONE (12:13)
--- NOTE | 2017-10-24 12:35 | CT ---
CT of the abdomen and pelvis with contrast. HISTORY: Rule out ischemic colitis TECHNIQUE: Axial CT images were obtained of the abdomen and pelvis following administration of 100 mL of Isovue-370 in the right antecubital fossa without complication. Coronal and sagittal reconstructi ons obtained. FINDINGS: The lung bases are clear without pleural effusion. There are a few tiny pleural-based nodules bilater ally. Calcified granuloma within the left lung base. The liver appears normal. Splenic granulomata ar e noted. The adrenal glands and gallbladder appear normal. The pancreas is normal. Pancreatic calcifi cations appear to be vascular in origin. No bulky retroperitoneal lymphadenopathy or abdominal ascite s. The kidneys enhance and function symmetrically without evidence of obstructive uropathy. Visualized large and small bowel are normal in caliber without evidence of obstruction. Minimal colon ic wall thickening within the descending and mid transverse colon without evidence of ischemic coliti s. No bulky pelvic lymphadenopathy. Urinary bladder is normal. No suspicious osseous abnormalities identified. Degenerative changes noted at L4-L5. IMPRESSION: 1. Several areas of minimal colonic wall thickening without evidence of ischemic colitis. Mild underl gal inflammatory or infectious colitis cannot be excluded. 2. Otherwise no acute findings within the abdomen or pelvis. 3. There are a few tiny pleural-based nodules within the lung bases. The patient has known risk facto rs consider follow-up imaging in 12 months.
[2017-10-24] MEDS: Morphine 4 MG/ML Syringe IVPUSH PRN ×3 (12:55→22:26)
[2017-10-24] MEDS: Nicotine 21 MG/24 Hr Patch TRDERM SCH (13:55)
[2017-10-24] MEDS: metroNIDAZOLE/Normal Saline 500 MG in Premix Bag 1 BAG IV SCH ×3 (14:23→23:20)
[2017-10-24] MEDS: Ketorolac 30 MG/ML SDV IVPUSH PRN (15:29)
[2017-10-24] MEDS ORDERED: Metoprolol Succinate 50 MG Tab.ER PO SCH (18:00)
[2017-10-25] MEDS: Sodium Chloride 0.9% 1,000 ML IV SCH (01:36)
[2017-10-25] MEDS: Ketorolac 30 MG/ML SDV IVPUSH PRN (01:40)
[2017-10-25] MEDS: metroNIDAZOLE/Normal Saline 500 MG in Premix Bag 1 BAG IV SCH (05:14)
[2017-10-25 06:32] LABS: CHLORIDE,CL 111 mmol/L (98-107); SODIUM,NA 143 mmol/L (136-148)
[2017-10-25] MEDS ORDERED: Levofloxacin/Dextrose 5%-Water 750 MG in Premix Bag 1 BAG IV SCH (07:00)
[2017-10-25 08:42] VITALS: BP 112/64
[2017-10-25] MEDS: Nicotine 21 MG/24 Hr Patch TRDERM SCH (08:43)
[2017-10-25] MEDS ORDERED: Metoprolol Succinate 25 MG Tab.ER PO SCH (09:00)
[2017-10-25] MEDS ORDERED: Sertraline 100 MG Tab PO SCH (09:00)
== END 2017-10-25 08:58 | disposition home or self-care (01) ==
LOC: MW.ED 06:40 → MW.MS 10:04
PROVIDERS: ADMIT Internal Medicine; ATTEND Internal Medicine
DX: K52.9 Noninfective gastroenteritis and colitis, unspecified (principal); E78.00 Pure hypercholesterolemia, unspecified; I10 Essential (primary) hypertension; Z90.49 Acquired absence of other specified parts of digestive tract; Z88.8 Allergy status to other drugs, medicaments and biological substances; Z79.899 Other long term (current) drug therapy; F17.210 Nicotine dependence, cigarettes, uncomplicated
CPT/HCPCS: 36415; 74176; 74177; 80053; 81001; 83605; 83690; 84484; 85025; 87040; 93005; 96360; 99284; A9270; J1650; J1885; J1956; J2270; J7040; Q9967; 96361; 96365; 96367; 96372; 96375; 96376; 99283; G0378

== ENCOUNTER 2018-08-24 10:04 | Emergency (ER) | payer BC, OTHER ==
[2018-08-24] MEDS ORDERED: Ketorolac 60 MG/2 ML SDV IM ONE (10:42)
--- NOTE | 2018-08-24 10:47 | EDM.PDOC ---
ED HPI GENERAL MEDICAL PROBLEM - General Chief Complaint: Back Pain or Injury Stated Complaint: BACK PAIN Time Seen by Provider: 08/24/18 10:42 Source of Information: Reports: Patient History Limitations: Reports: No Limitations - History of Present Illness INITIAL COMMENTS - FREE TEXT/NARRATIVE: HISTORY AND PHYSICAL: History of present illness: Patient is a 58-year-old male here with complaint of back pain. Patient has history of chronic back pain and has had previous back surgeries and currently takes [place] for his pain. He was seen in the ED about 1 week ago after falling on the ice and had unremarkable x-rays then. He states that her days ago he bent over and felt a snap on the right lower back and since has been having pain. He denies any saddle anesthesia, bowel or bladder incontinence, lower 70 weakness or foot drop, fevers or chills. He is requesting a shot of toradol at this time. Review of systems: As per history of present illness and below otherwise all systems reviewed and negative. Past medical history: As per history of present illness and as reviewed below otherwise noncontributory. Surgical history: As per history of present illness and as reviewed below otherwise noncontributory. Social history: No reported history of drug or alcohol abuse. Family history: As per history of present illness and as reviewed below otherwise noncontributory. Physical exam: General: Patient sitting comfortably in no acute distress and nontoxic appearing HEENT: Atraumatic, normocephalic, pupils reactive, negative for conjunctival pallor or scleral icterus, mucous membranes moist, throat clear, neck supple, nontender, trachea midline. No meningeal signs. Lungs: Clear to auscultation, breath sounds equal bilaterally, chest nontender. Heart: S1S2, regular, negative for clicks, rubs, or overt murmur. Abdomen: Soft, nondistended, nontender. Negative for masses or hepatosplenomegaly. Negative for costovertebral tenderness. Pelvis: Stable nontender. Genitourinary: Deferred. Rectal: Deferred. Spine: No vertebral tenderness or step-offs to palpation. Right lumbar paraspinal tenderness to palpation. Extremities: Atraumatic, negative for cords or calf pain. Neurovascular unremarkable. Neuro: Awake, alert, oriented. Cranial nerves II through XII unremarkable. Cerebellum unremarkable. Motor and sensory unremarkable throughout. Exam nonfocal. Notes: Diagnostics: None Therapeutics: Toradol 60mg IM Prescriptions: None Impression: Acute on chronic back pain Plan: 1. Heat or ice and [id number] Tylenol Motrin as needed as instructed. Take your [place] as needed as prescribed. 2. Follow-up with your primary care provider 3. Return to ED as needed as discussed Definitive disposition and diagnosis as appropriate pending reevaluation and review of above. - Related Data Allergies Allergy/AdvReac Type Severity Reaction Status Date / Time varenicline tartrate Allergy Change Verified 08/15/18 08:54 [From Chantix] Mental Status Home Meds: Home Meds Metoprolol Succinate 100 mg PO QPM 06/26/14 [History] Metoprolol Succinate 50 mg PO QAM 07/31/16 [History] Acetaminophen/HYDROcodone [[place] 325-10 MG] 1 - 2 tab PO Q4H PRN #80 tablet [Rx] Sertraline HCl 150 mg PO DAILY 05/16/18 [History] Sucralfate 1 gram PO QID 08/15/18 [History] Past Medical History HEENT History: Reports: Hard of Hearing, Other (See Below) Other HEENT History: uses reading glasses Cardiovascular History: Reports: High Cholesterol, Hypertension Respiratory History: Reports: None Gastrointestinal History: Reports: Colon Polyp, Diverticulosis, Other (See Below ) Other Gastrointestinal History: abd pain and bloating Genitourinary History: Reports: None Musculoskeletal History: Reports: Arthritis, Back Pain, Chronic, Fracture, Other (See Below) Other Musculoskeletal History: pinky finger. back surgery x3 with fusion Neurological History: Reports: None Psychiatric History: Reports: Anxiety, Depression Endocrine/Metabolic History: Reports: None Hematologic History: Reports: None Immunologic History: Reports: None Oncologic (Cancer) History: Reports: None Dermatologic History: Reports: None - Infectious Disease History Infectious Disease History: Reports: Chicken Pox, Measles, Mumps - Past Surgical History Head Surgeries/Procedures: Reports: None HEENT Surgical History: Reports: None Cardiovascular Surgical History: Reports: None Respiratory Surgical History: Reports: None GI Surgical History: Reports: Appendectomy, Colonoscopy Male Surgical History: Reports: None Endocrine Surgical History: Reports: None Neurological Surgical History: Reports: Lumbar Spine Other Neurological Surgeries/Procedures: lower back surgery x3, discs removed and fusion at 2 levels Musculoskeletal Surgical History: Reports: Arthroscopic Knee, Shoulder Surgery Other Musculoskeletal Surgeries/Procedures:: pacheco knee arthroscopy, right shoulder surgery ( superior labrum tear) Oncologic Surgical History: Reports: None Dermatological Surgical History: Reports: None Social & Family History - Family History Family Medical History: Noncontributory - Caffeine Use Caffeine Use: Reports: None ED ROS GENERAL - Review of Systems Review Of Systems: ROS reveals no pertinent complaints other than HPI. ED EXAM,LOWER BACK PAIN/INJURY - Physical Exam Exam: See Below (see dictation) Course - Vital Signs Last Recorded V/S: Last Vital Signs Temp 98.0 F 08/24/18 10:32 Pulse 66 08/24/18 10:32 Resp 18 08/24/18 10:32 BP 115/62 08/24/18 10:32 Pulse Ox 99 08/24/18 10:32 - Orders/Labs/Meds Orders: Active Orders 24 hr Category Date Time Status Ketorolac [Toradol] Med 08/24/18 10:42 Once 60 mg IM ONETIME ONE Medication Orders Ketorolac Tromethamine (Toradol) 60 mg IM ONETIME ONE Stop: 08/24/18 10:43 Meds: Medications Generic Name Dose Route Start Last Admin Trade Name Freq PRN Reason Stop Dose Admin Ketorolac Tromethamine 60 mg 08/24/18 10:42 Toradol IM 08/24/18 10:43 ONETIME ONE Departure - Departure Time of Disposition: 10:46 Disposition: Home, Self-Care 01 Condition: Good Clinical Impression: Acute exacerbation of chronic low back pain - Discharge Information Referrals: PCP,Unknown [Primary Care Provider] - Additional Instructions: The following information is given to patients seen in the emergency department who are being discharged to home. This information is to outline your options for follow-up care. We provide all patients seen in our emergency department with a follow-up referral. The need for follow-up, as well as the timing and circumstances, are variable depending upon the specifics of your emergency department visit. If you don't have a primary care physician on staff, we will provide you with a referral. We always advise you to contact your personal physician following an emergency department visit to inform them of the circumstance of the visit and for follow-up with them and/or the need for any referrals to a consulting specialist. The emergency department will also refer you to a specialist when appropriate. This referral assures that you have the opportunity for follow-up care with a specialist. All of these measure are taken in an effort to provide you with optimal care, which includes your follow-up. Under all circumstances we always encourage you to contact your private physician who remains a resource for coordinating your care. When calling for follow-up care, please make the office aware that this follow-up is from your recent emergency room visit. If for any reason you are refused follow-up, please contact the [facility] Emergency Department at and asked to speak to the emergency department charge nurse. [facility] Primary Care [address] [place] [id number] 1. Heat or ice and [id number] Tylenol Motrin as needed as instructed. Take your [place] as needed as prescribed. 2. Follow-up with your primary care provider 3. Return to ED as needed as discussed - My Orders Last 24 Hours: My Active Orders 08/24/18 10:42 Ketorolac [Toradol] 60 mg IM ONETIME ONE - Assessment/Plan Last 24 Hours: My Active Orders 08/24/18 10:42 Ketorolac [Toradol] 60 mg IM ONETIME ONE
[2018-08-24 11:14] VITALS: BP 97/68
== END 2018-08-24 11:10 | disposition home or self-care (01) ==
LOC: MW.ED 10:04
DX: M54.5 Low back pain (principal); G89.29 Other chronic pain; I10 Essential (primary) hypertension; F41.9 Anxiety disorder, unspecified; F32.9 Major depressive disorder, single episode, unspecified; Z88.1 Allergy status to other antibiotic agents
CPT/HCPCS: 96372; 99283; J1885

== ENCOUNTER 2020-01-10 19:22 | Emergency (ER) | payer SELFPAY ==
[2020-01-10 19:39] VITALS: BP 108/65; PULSE 80
--- NOTE | 2020-01-10 20:00 | EDM.PDOC ---
ED HPI GENERAL MEDICAL PROBLEM - General Chief Complaint: ENT Problem Stated Complaint: LEFT EAR PROBLEM Time Seen by Provider: 01/10/20 19:32 - History of Present Illness INITIAL COMMENTS - FREE TEXT/NARRATIVE: History of present illness: [] Patient has left the rubber tip to his hearing aid in the left ear canal is quite painful. Is he tried to get it out it hurt worse. He is not dizzy or out of balance. Pain is moderately severe and try to get the tip out makes it worse. Review of systems: As per history of present illness and below otherwise all systems reviewed and negative. Past medical history: As per history of present illness and as reviewed below otherwise noncontributory. Surgical history: As per history of present illness and as reviewed below otherwise noncontributory. Social history: No reported history of drug or alcohol abuse. Family history: As per history of present illness and as reviewed below otherwise noncontributory. Physical exam: Constitutional - well developed, well-nourished and in no acute distress HEENT - normocephalic, no evidence of trauma - external nose and mouth normal - no mass in neck and no JVD - mucosae moist the external ears are normal but there is no obvious cylindrical foreign body in the ear canal on the left side. EYES - full EOM, PERRL, no icterus - no evidence of inflammation, injection, or drainage Respiratory - no respiratory distress, equal bilateral expansion Musculoskeletal no gross deformity of long bones or joints - no tenderness, swelling or edema Neurologic - Alert and oriented times four - CN II-XII grossly intact - motor sensory and coordination symmetrically normal Psychiatric - appropriate mood and affect with normal thought content Hematologic - No petechiae or purpura - mucosa appropriate color and sclera not pale - normal nail bed color and refill Integument - no rash or evidence of trauma - normal turgor Diagnostics: [] Therapeutics: [] Impression: [] Plan: [] Definitive disposition and diagnosis as appropriate pending reevaluation and review of above. - Related Data Allergies Allergy/AdvReac Type Severity Reaction Status Date / Time varenicline tartrate Allergy Change Verified 01/10/20 19:40 [From Chantix] Mental Status Home Meds: Home Meds Metoprolol Succinate 100 mg PO QPM 06/26/14 [History] Metoprolol Succinate 50 mg PO QAM 07/31/16 [History] Acetaminophen/HYDROcodone [[place] 325-10 MG] 1 - 2 tab PO Q4H PRN #80 tablet 08/03/16 [Rx] Sertraline HCl 150 mg PO DAILY 05/16/18 [History] Sucralfate 1 gram PO QID 08/15/18 [History] Past Medical History HEENT History: Reports: Hard of Hearing, Other (See Below) Other HEENT History: uses reading glasses Cardiovascular History: Reports: High Cholesterol, Hypertension Respiratory History: Reports: None Gastrointestinal History: Reports: Colon Polyp, Diverticulosis, Other (See Below) Other Gastrointestinal History: abd pain and bloating Genitourinary History: Reports: None Musculoskeletal History: Reports: Arthritis, Back Pain, Chronic, Fracture, Other (See Below) Other Musculoskeletal History: pinky finger. back surgery x3 with fusion Neurological History: Reports: None Psychiatric History: Reports: Anxiety, Depression Endocrine/Metabolic History: Reports: None Hematologic History: Reports: None Immunologic History: Reports: None Oncologic (Cancer) History: Reports: None Dermatologic History: Reports: None - Infectious Disease History Infectious Disease History: Reports: Chicken Pox, Measles, Mumps - Past Surgical History Head Surgeries/Procedures: Reports: None HEENT Surgical History: Reports: None Cardiovascular Surgical History: Reports: None Respiratory Surgical History: Reports: None GI Surgical History: Reports: Appendectomy, Colonoscopy Male Surgical History: Reports: None Endocrine Surgical History: Reports: None Neurological Surgical History: Reports: Lumbar Spine Other Neurological Surgeries/Procedures: lower back surgery x3, discs removed and fusion at 2 levels Musculoskeletal Surgical History: Reports: Arthroscopic Knee, Shoulder Surgery Other Musculoskeletal Surgeries/Procedures:: pacheco knee arthroscopy, right shoulder surgery ( superior labrum tear) Oncologic Surgical History: Reports: None Dermatological Surgical History: Reports: None Social & Family History - Family History Family Medical History: Noncontributory - Tobacco Use Smoking Status *Q: Current Every Day Smoker Years of Tobacco use: 40 Packs/Tins Daily: 1 - Caffeine Use Caffeine Use: Reports: Coffee - Recreational Drug Use Recreational Drug Use: No ED ROS GENERAL - Review of Systems Review Of Systems: Comprehensive ROS is negative, except as noted in HPI. ED EXAM, GENERAL - Physical Exam Exam: See Below Free Text/Narrative:: His goal exam is in the . Course - Vital Signs Text/Narrative:: An alligator forceps was used to remove an obvious foreign body that was symmetrical. I was able to grasp it without damaging the ear canal. Inspection of the ear canal afterwards revealed no damage into TM intact Last Recorded V/S: Last Vital Signs Temp 96.9 F 01/10/20 19:30 Pulse 80 01/10/20 19:30 Resp 14 01/10/20 19:30 BP 108/65 01/10/20 19:30 Pulse Ox 96 01/10/20 19:30 Departure - Departure Time of Disposition: 19:55 Disposition: Home, Self-Care 01 Condition: Good Clinical Impression: Acute foreign body of left ear canal, Foreign body in ear - Discharge Information Referrals: Micheal Mcclure MD [Primary Care Provider] - Additional Instructions: The following information is given to patients seen in the emergency department who are being discharged to home. This information is to outline your options for follow-up care. We provide all patients seen in our emergency department with a follow-up referral. The need for follow-up, as well as the timing and circumstances, are variable depending upon the specifics of your emergency department visit. If you don't have a primary care physician on staff, we will provide you with a referral. We always advise you to contact your personal physician following an emergency department visit to inform them of the circumstance of the visit and for follow-up with them and/or the need for any referrals to a consulting specialist. The emergency department will also refer you to a specialist when appropriate. This referral assures that you have the opportunity for follow-up care with a specialist. All of these measure are taken in an effort to provide you with optimal care, which includes your follow-up. Under all circumstances we always encourage you to contact your private physician who remains a resource for coordinating your care. When calling for follow-up care, please make the office aware that this follow-up is from your recent emergency room visit. If for any reason you are refused follow-up, please contact the [facility] Emergency Department at and asked to speak to the emergency department charge nurse. [facility] - Primary Care [address] [place] [id number] [address] [place] [address] Sepsis Event Note (ED) - Evaluation Sepsis Screening Result: No Definite Risk - Focused Exam Vital Signs: Vital Signs Temp Pulse Resp BP Pulse Ox 01/10/20 19:30 96.9 F 80 14 108/65 96
== END 2020-01-10 20:16 | disposition home or self-care (01) ==
LOC: MW.ED 19:22
DX: T16.2XXA Foreign body in left ear, initial encounter (principal); I10 Essential (primary) hypertension; F41.9 Anxiety disorder, unspecified; F32.9 Major depressive disorder, single episode, unspecified; F17.210 Nicotine dependence, cigarettes, uncomplicated; Z88.8 Allergy status to other drugs, medicaments and biological substances; Z79.899 Other long term (current) drug therapy
CPT/HCPCS: 69200; 99282

== ENCOUNTER 2021-12-11 07:44 | Emergency (ER) | payer SELFPAY ==
[2021-12-11] MEDS ORDERED: Ketorolac 30 MG/ML SDV IVPUSH ONE (08:00)
[2021-12-11 08:56] VITALS: PULSE 66
[2021-12-11 09:02] LABS: BLOOD UREA NITROGEN,BUN 15 mg/dL (7.0-18.0); CARBON DIOXIDE,CO2 23.9 mmol/L (21.0-32.0); CHLORIDE,CL 101 mmol/L (98-107); GLUCOSE RANDOM 92 mg/dL (74-106); POTASSIUM,K 4.4 mmol/L (3.5-5.1); SODIUM,NA 134 mmol/L (136-148)
[2021-12-11] MEDS ORDERED: Iopamidol 755 MG/ML 500 ML Multipack Bottle IVPUSH STA (09:57)
[2021-12-11] MEDS ORDERED: Acetaminophen/oxyCODONE 325-5 MG Tab PO ONE (10:28)
[2021-12-11 10:58] VITALS: BP 102/72
== END 2021-12-11 10:53 | disposition home or self-care (01) ==
LOC: MW.ED 07:44
DX: R07.81 Pleurodynia (principal); R07.89 Other chest pain; E78.00 Pure hypercholesterolemia, unspecified; I10 Essential (primary) hypertension; Z88.8 Allergy status to other drugs, medicaments and biological substances
CPT/HCPCS: 36415; 71275; 80053; 84484; 85025; 85610; 85730; 93005; 96374; 96375; 99284; A9270; J1885; J3360; Q9967; 93010

== ENCOUNTER 2022-11-14 04:32 | Emergency (ER) | payer OTHER ==
[2022-11-14] MEDS ORDERED: Ketorolac 30 MG/ML SDV IM ONE (04:58)
[2022-11-14 05:19] VITALS: BP 127/85; PULSE 78
== END 2022-11-14 05:18 | disposition home or self-care (01) ==
LOC: MW.ED 04:32
DX: K40.90 Unilateral inguinal hernia, without obstruction or gangrene, not specified as recurrent (principal); I10 Essential (primary) hypertension; Z88.8 Allergy status to other drugs, medicaments and biological substances
CPT/HCPCS: 81001; 96372; 99284; J1885; 99283

== ENCOUNTER 2022-11-21 15:15 | Emergency (ER) | payer OTHER | END 2022-11-21 15:32 | disposition left against medical advice (07) | LOC: MW.ED 15:15 | DX: Z53.21 Procedure and treatment not carried out due to patient leaving prior to being seen by health care provider (principal) ==

== ENCOUNTER 2022-11-21 17:13 | Emergency (ER) | payer OTHER ==
[2022-11-21] MEDS ORDERED: Diphtheria,Pertussis(Acell),Tetanus Vaccine 0.5 ML Syringe IM ONE (18:07)
[2022-11-21] MEDS ORDERED: Lidocaine 1% 5 ML VIAL INJECT STA (18:11)
[2022-11-21] MEDS ORDERED: Cephalexin 500 MG Cap PO STA (19:21)
[2022-11-21 20:43] VITALS: BP 110/77; PULSE 83
== END 2022-11-21 20:42 | disposition home or self-care (01) ==
LOC: MW.ED 17:13
DX: S61.411A Laceration without foreign body of right hand, initial encounter (principal); S69.91XA Unspecified injury of right wrist, hand and finger(s), initial encounter; I10 Essential (primary) hypertension; Z23 Encounter for immunization; Z88.8 Allergy status to other drugs, medicaments and biological substances; Z79.899 Other long term (current) drug therapy; W27.0XXA Contact with workbench tool, initial encounter
CPT/HCPCS: 12002; 73130; 90471; 90715; 99283; A9270; J3490

== ENCOUNTER 2023-06-09 12:46 | Emergency (ER) | payer SELFPAY ==
[2023-06-09] MEDS ORDERED: predniSONE 20 MG Tab PO STA (13:51)
[2023-06-09] MEDS ORDERED: Cyclobenzaprine 10 MG Tab PO ONE (13:51)
[2023-06-09] MEDS ORDERED: Ketorolac 30 MG/ML SDV IM ONE (13:51)
[2023-06-09 14:49] VITALS: BP 123/79; PULSE 71
== END 2023-06-09 14:46 | disposition home or self-care (01) ==
LOC: MW.ED 12:46
DX: S39.92XA Unspecified injury of lower back, initial encounter (principal); I10 Essential (primary) hypertension; E78.00 Pure hypercholesterolemia, unspecified; Z90.49 Acquired absence of other specified parts of digestive tract; X50.1XXA Overexertion from prolonged static or awkward postures, initial encounter
CPT/HCPCS: 96372; 99283; A9270; J1885

== ENCOUNTER 2024-08-04 18:54 | Emergency (ER) | payer BC ==
[2024-08-04 20:34] VITALS: BP 143/89; PULSE 72
[2024-08-04] MEDS: Ketorolac 60 MG/2 ML SDV IM ONE (20:35)
== END 2024-08-04 20:38 | disposition home or self-care (01) ==
LOC: MW.ED 18:54
DX: M25.512 Pain in left shoulder (principal); Z90.49 Acquired absence of other specified parts of digestive tract; Z88.8 Allergy status to other drugs, medicaments and biological substances; Z79.52 Long term (current) use of systemic steroids; Z79.899 Other long term (current) drug therapy
CPT/HCPCS: 96372; 99283; J1885